=== PATIENT | male | born 1960 ===

== ENCOUNTER → 2017-12-27 06:07 | Outpatient (CLI) | payer OTHER | END | disposition home or self-care (01) | LOC: LAB 06:07 → EDBD 06:07 | DX: I10 Essential (primary) hypertension (principal) ==

== ENCOUNTER → 2017-12-27 | Day surgery (SDC) | payer OTHER ==
[~2017-12-27] MED LIST: COLACE100 MG PO; PERCOCET 5-3251 EACH PO; TENORMIN50 M1 PO
== END | disposition home or self-care (01) ==
LOC: ADM 12-11 10:30 → CIR.AMB 05:00 → EDBD 10:30
DX: K64.5 Perianal venous thrombosis (principal); K64.8 Other hemorrhoids; K62.89 Other specified diseases of anus and rectum; K64.1 Second degree hemorrhoids

== ENCOUNTER 2018-01-04 16:15 | Emergency (ER) | payer OTHER ==
[~2018-01-04] VITALS: Ht 182.9 cm; Wt 100.7 kg
== END 2018-01-04 19:37 | disposition home or self-care (01) ==
LOC: ER 16:15
DX: K59.00 Constipation, unspecified (principal)